=== PATIENT | female | born 1955 | race Caucasian/White ===

== ENCOUNTER 2017-03-28 10:29 | Outpatient (CLI) | payer OTHER, BC ==
[2017-03-28 18:19] LABS: BASOPHILS # (AUTO) 0.1 10^3/uL (0.0-0.1); BASOPHILS % (AUTO) 1.2 %; EOSINOPHILS % (AUTO) 0.6 %; HCT - HEMATOCRIT 46.7 % (37.0-47.0); LYMPHOCYTES # (AUTO) 1.9 10^3/uL (1.5-3.5); LYMPHOCYTES % (AUTO) 28.9 %; MEAN CORPUSCULAR HEMOGLOBIN 29.1 pg (27.0-31.0); MEAN CORPUSCULAR HGB CONC 32.1 g/dL (32.0-36.0); MEAN CORPUSCULAR VOLUME 90.5 fL (81.0-99.0); MEAN PLATELET VOLUME 7.6 fL (7.9-10.8); MONOCYTES # (AUTO) 0.4 10^3/uL (0.0-1.0); MONOCYTES % (AUTO) 6.1 %; NEUTROPHILS # (AUTO) 4.2 10^3/uL (1.5-6.6); NEUTROPHILS % (AUTO) 63.2 %; NUCLEATED RED BLOOD CELLS AUTO 0.1 /100WBC; RED BLOOD COUNT 5.16 10^6/uL (4.20-5.40); RED CELL DISTRIBUTION WIDTH 13.6 % (12.0-15.0); UNCORRECTED WHITE BLOOD COUNT 6.6 x10^3/uL; WHITE BLOOD COUNT 6.6 x10^3/uL (4.8-10.8)
[2017-03-28 19:17] LABS: ALBUMIN/GLOBULIN RATIO 1.5 (1.0-2.2); BILIRUBIN,TOTAL 0.7 mg/dL (0.2-1.0); BUN - BLOOD UREA NITROGEN 11 mg/dL (6-20); CALCIUM 9.6 mg/dL (8.5-10.3); CARBON DIOXIDE - CO2 26 mmol/L (21-32); CHLORIDE 100 mmol/L (101-111); CHOLESTEROL 238 mg/dL; CREATININE 0.7 mg/dL (0.4-1.0); GFR - MDRD 86 (>89); GLUCOSE 91 mg/dL (70-100); HDL CHOLESTEROL 118 mg/dL; LDL/HDL RATIO 0.9 (<4.4); POTASSIUM 3.9 mmol/L (3.5-5.0); SODIUM 138 mmol/L (135-145); TOTAL PROTEIN 7.7 g/dL (6.7-8.2); TRIGLYCERIDES 47 mg/dL; VLDL CHOLESTEROL 9 mg/dL
== END 2017-03-28 10:30 | disposition home or self-care (01) ==
LOC: LAB.F 10:29
PROVIDERS: ATTEND Physician Assistant Medical
DX: Z00.00 Encounter for general adult medical examination without abnormal findings (principal); I10 Essential (primary) hypertension; E78.5 Hyperlipidemia, unspecified; E55.9 Vitamin D deficiency, unspecified; Z13.29 Encounter for screening for other suspected endocrine disorder; Z20.5 Contact with and (suspected) exposure to viral hepatitis
CPT/HCPCS: 36415; 80053; 80061; 82306; 84443; 85025; 86803

== ENCOUNTER 2017-04-10 15:12 | Outpatient (CLI) | payer OTHER, BC ==
--- NOTE | 2017-04-12 14:14 | Mammography Report ---
DIGITAL SCREENING MAMMOGRAM: 04/10/2017 CLINICAL INDICATION: A 61-year-old, for screening. COMPARISON: No previous examinations are available for comparison. If records in your office indicate where the patient has had previous mammograms, we would be happy to try to obtain them for direct co mparison. Otherwise, this will serve as a new baseline. TECHNIQUE: Routine CC and MLO projections were obtained of the breasts. FINDINGS: The breasts demonstrate heterogeneously dense fibroglandular parenchyma bilaterally. Coars e and punctate, typically benign calcifications are present. No suspicious masses, clustered microcal cifications, or regions of architectural distortion are identified. IMPRESSION: BENIGN FINDINGS. RECOMMENDATION: ROUTINE ANNUAL SCREENING UNLESS OTHERWISE CLINICALLY INDICATED. BIRADS CATEGORY 2-BENIGN FINDINGS. STANDARD QUALIFYING STATEMENTS 1. This examination was reviewed with the aid of Computer-Aided Detection (CAD). 2. A negative or benign imaging report should not delay biopsy if clinically suspicious findings are present. Consider surgical consultation if warranted. More than 5% of cancers are not identified by i maging. 3. Dense breasts may obscure an underlying neoplasm. JOB #: [id number] EXT JOB #:[id number]
== END 2017-04-10 15:13 | disposition home or self-care (01) ==
LOC: DI 15:12
PROVIDERS: ATTEND Physician Assistant Medical
DX: Z00.00 Encounter for general adult medical examination without abnormal findings (principal); Z12.31 Encounter for screening mammogram for malignant neoplasm of breast
CPT/HCPCS: 77067

== ENCOUNTER 2017-05-06 10:40 | Outpatient (CLI) | payer OTHER, BC ==
--- NOTE | 2017-05-08 15:12 | DEXA Report ---
DEXA SCAN: 05/06/2017 HISTORY: Steroid use. TECHNIQUE: Dual energy x-ray absorptiometry (DXA) was performed on a [employer] system. Regions measured are the AP spine, femoral neck, and, if needed, forearm. COMPARISON: None. In accordance with the International Society for Clinical Densitometry (ISCD) guidelines, data from previous exams may be reanalyzed using current recommendations and techniques. This is done to allow a more accurate basis for comparison with the current study. FINDINGS LUMBAR SPINE DATA: REGION BMD (g/cm/cm) T-SCORE Z-SCORE L1 0.811 -2.7 -1.7 L2 0.912 -2.4 -1.4 L3 1.053 -1.2 -0.2 L4 0.936 -2.2 -1.2 TOTAL L1-L4 0.931 -2.0 -1.1 TOTAL L2-L4 0.965 -2.0 -1.0 NOTE: All evaluable vertebrae are used for classification. HIP DATA: REGION BMD (g/cm/cm) T-SCORE Z-SCORE Neck 0.756 -2.0 -0.9 TOTAL 0.800 -1.7 -0.9 NOTE: The femoral neck or total proximal femur, whichever is lowest, is used for classification. IMPRESSION THE WHO CLASSIFICATION BASED ON THE INTERNATIONAL REFERENCE STANDARD: OSTEOPENIA. FRACTURE RISK: INCREASED. RECOMMENDATION: Patients with diagnosis of osteoporosis or osteopenia should have regular bone mineral density assessment. For those eligible for Medicare, routine testing is allowed once every 2 years. Testing frequency can be increased for patients who have rapidly progressing disease or for those who are receiving medical therapy to restore bone mass. COMMENT: World Health Organization (WHO) definitions for osteoporosis and osteopenia: NORMAL BMD: T-score at -1.0 or higher, fracture risk is low. OSTEOPENIA BMD: T-score between -1.0 and -2.5, fracture risk is increased. OSTEOPOROSIS BMD: T-score at -2.5 or lower, fracture risk high. National Osteoporosis Foundation recommends: 1. Obtain adequate dietary calcium (at least 1200 mg per day) and vitamin D (400 -800 international units per day). 2. Participate, as appropriate, in regular weightbearing and muscle- strengthening exercise. 3. Avoid tobacco use and reduce alcohol and caffeine intake. 4. For more detailed information see the website at www.NOF.org. MTDD
== END 2017-05-06 10:41 | disposition home or self-care (01) ==
LOC: DI 10:40
PROVIDERS: ATTEND Physician Assistant Medical
DX: Z00.00 Encounter for general adult medical examination without abnormal findings (principal); Z13.820 Encounter for screening for osteoporosis; M85.89 Other specified disorders of bone density and structure, multiple sites
CPT/HCPCS: 77080

== ENCOUNTER 2018-03-10 11:53 | Outpatient (CLI) | payer OTHER, BC ==
[2018-03-10 17:51] LABS: BASOPHILS # (AUTO) 0.1 10^3/uL (0.0-0.1); BASOPHILS % (AUTO) 1.1 %; EOSINOPHILS # (AUTO) 0.1 10^3/uL (0.0-0.7); EOSINOPHILS % (AUTO) 1.9 %; HGB - HEMOGLOBIN 15.1 g/dL (12.0-16.0); LYMPHOCYTES # (AUTO) 2.2 10^3/uL (1.5-3.5); LYMPHOCYTES % (AUTO) 35.7 %; MEAN CORPUSCULAR HEMOGLOBIN 29.2 pg (27.0-31.0); MEAN CORPUSCULAR VOLUME 88.5 fL (81.0-99.0); MEAN PLATELET VOLUME 7.8 fL (7.9-10.8); MONOCYTES # (AUTO) 0.4 10^3/uL (0.0-1.0); MONOCYTES % (AUTO) 7.3 %; NEUTROPHILS # (AUTO) 3.3 10^3/uL (1.5-6.6); PLT - PLATELET COUNT 306 10^3/uL (130-450); RED BLOOD COUNT 5.16 10^6/uL (4.20-5.40); RED CELL DISTRIBUTION WIDTH 13.6 % (12.0-15.0); WHITE BLOOD COUNT 6.1 x10^3/uL (4.8-10.8)
[2018-03-10 18:14] LABS: ALBUMIN 4.2 g/dL (3.2-5.5); ALBUMIN/GLOBULIN RATIO 1.4 (1.0-2.2); ALKALINE PHOSPHATASE 65 IU/L (42-121); ALT ALANINE AMINOTRANSFERASE 21 IU/L (10-60); AST ASPARTATE AMINOTRANSFERASE 20 IU/L (10-42); BUN - BLOOD UREA NITROGEN 13 mg/dL (6-20); CALCIUM 8.9 mg/dL (8.5-10.3); CARBON DIOXIDE - CO2 26 mmol/L (21-32); CHLORIDE 100 mmol/L (101-111); CHOL/HDL RATIO 2.3 (<4.4); CHOLESTEROL 200 mg/dL; CREATININE 0.7 mg/dL (0.4-1.0); GFR - MDRD 85 (>89); GLUCOSE 104 mg/dL (70-100); HDL CHOLESTEROL 87 mg/dL; LDL CHOLESTEROL,CALCULATED 98 mg/dL; LDL/HDL RATIO 1.1 (<4.4); SODIUM 136 mmol/L (135-145); TOTAL PROTEIN 7.3 g/dL (6.7-8.2); VLDL CHOLESTEROL 15 mg/dL
== END 2018-03-10 11:54 | disposition home or self-care (01) ==
LOC: LAB.F 11:53
PROVIDERS: ATTEND Physician Assistant Medical
DX: I10 Essential (primary) hypertension (principal); E78.5 Hyperlipidemia, unspecified
CPT/HCPCS: 36415; 80053; 80061; 83721; 85025

== ENCOUNTER 2019-05-07 10:47 | Outpatient (CLI) | payer OTHER, BC | END 2019-05-07 10:48 | disposition home or self-care (01) | LOC: LAB.S 10:47 | PROVIDERS: ATTEND Physician Assistant Medical | DX: Z13.29 Encounter for screening for other suspected endocrine disorder (principal); Z84.89 Family history of other specified conditions; R68.83 Chills (without fever) | CPT/HCPCS: 36415; 84443 ==

== ENCOUNTER 2020-04-07 15:40 | Outpatient (CLI) | payer BC ==
--- NOTE | 2020-04-07 16:24 | DEXA Report ---
PROCEDURE: Dexa Spine and/or Hip INDICATIONS: POST MENOPAUSAL TECHNIQUE: Dual energy x-ray absorptiometry (DXA) was performed on a [employer] System. Regions measur ed are the AP Spine, femoral neck, and if needed forearm. COMPARISON: 05/06/2017. FINDINGS: Lumbar Spine: Bone Mineral Density 1.010 g/cm/cm,T score -1.4, osteopenia Left Hip: Bone Mineral Density 0.750 g/cm/cm,T score -2.0, osteopenia Left Femoral Neck: Bone Mineral Density 0.70 g/cm/cm, T score -2.4, osteopenia (T score greater or equal to -1.0: NORMAL) (T score from -1.1 to -2.4: OSTEOPENIA) (T score less than or equal to -2.5 to: OSTEOPOROSIS) Impression: Osteopenia. Bone mineral density has decreased 6.3% interval since prior exam. Patients with diagnosis of osteoporosis or osteopenia should have regular bone mineral density assess ment. For those eligible for Medicare, routine testing is allowed once every 2 years. Testing frequ ency can be increased for patients who have rapidly progressing disease or for those who are receivin g medical therapy to restore bone mass. Reviewed by: Marissa Hurt MD, PhD on 04/07/2020 4:23 PM PST Approved by: Marissa Hurt MD, PhD on 04/07/2020 4:23 PM PST Station ID: [id number]
== END 2020-04-07 15:41 | disposition home or self-care (01) ==
LOC: DI 15:40
PROVIDERS: ATTEND Physician Assistant
DX: M85.89 Other specified disorders of bone density and structure, multiple sites (principal)
CPT/HCPCS: 77080

== ENCOUNTER 2020-06-22 09:29 | Outpatient (CLI) | payer BC ==
[2020-06-24] MEDS ORDERED: ALBUTEROL 1 PUFF INH STA (11:34)
== END 2020-06-22 09:30 | disposition home or self-care (01) ==
LOC: RT 09:29
PROVIDERS: ATTEND Internal Medicine
DX: J45.40 Moderate persistent asthma, uncomplicated (principal)
CPT/HCPCS: 94060; 94729

== ENCOUNTER 2020-08-31 11:54 | Outpatient (CLI) | payer BC ==
[2020-08-31 15:14] LABS: BASOPHILS # (AUTO) 0.1 10^3/uL (0.0-0.1); BASOPHILS % (AUTO) 1.2 %; EOSINOPHILS # (AUTO) 0.1 10^3/uL (0.0-0.7); HCT - HEMATOCRIT 43.6 % (37.0-47.0); HGB - HEMOGLOBIN 14.4 g/dL (12.0-16.0); LYMPHOCYTES # (AUTO) 1.8 10^3/uL (1.5-3.5); LYMPHOCYTES % (AUTO) 29.7 %; MEAN CORPUSCULAR HEMOGLOBIN 29.4 pg (27.0-31.0); MEAN PLATELET VOLUME 9.2 fL (7.9-10.8); MONOCYTES # (AUTO) 0.4 10^3/uL (0.0-1.0); MONOCYTES % (AUTO) 6.4 %; NEUTROPHILS # (AUTO) 3.6 10^3/uL (1.5-6.6); NEUTROPHILS % (AUTO) 61.4 %; PLT - PLATELET COUNT 351 10^3/uL (130-450); WHITE BLOOD COUNT 5.9 x10^3/uL (4.8-10.8)
[2020-08-31 15:30] LABS: ALBUMIN 4.4 g/dL (3.2-5.5); ALBUMIN/GLOBULIN RATIO 1.4 (1.0-2.2); ALKALINE PHOSPHATASE 66 IU/L (42-121); ALT ALANINE AMINOTRANSFERASE 18 IU/L (10-60); AST ASPARTATE AMINOTRANSFERASE 19 IU/L (10-42); BILIRUBIN,TOTAL 0.9 mg/dL (0.2-1.0); BUN - BLOOD UREA NITROGEN 8 mg/dL (6-20); CALCIUM 9.9 mg/dL (8.5-10.3); CARBON DIOXIDE - CO2 28 mmol/L (21-32); CHLORIDE 95 mmol/L (101-111); CHOL/HDL RATIO 2.7 (<4.4); CHOLESTEROL 289 mg/dL; CREATININE 0.6 mg/dL (0.4-1.0); GFR - MDRD 101 (>89); GLUCOSE 107 mg/dL (70-100); HDL CHOLESTEROL 107 mg/dL; LDL CHOLESTEROL,CALCULATED 170 mg/dL; LDL/HDL RATIO 1.6 (<4.4); POTASSIUM 3.6 mmol/L (3.5-5.0); SODIUM 134 mmol/L (135-145); TOTAL PROTEIN 7.5 g/dL (6.7-8.2); TRIGLYCERIDES 58 mg/dL; VLDL CHOLESTEROL 12 mg/dL
== END 2020-08-31 11:55 | disposition home or self-care (01) ==
LOC: LAB.S 11:54
PROVIDERS: ATTEND Internal Medicine
DX: I10 Essential (primary) hypertension (principal)
CPT/HCPCS: 36415; 80053; 80061; 83721; 85025

== ENCOUNTER 2020-11-21 12:30 | Outpatient (CLI) | payer BC ==
--- NOTE | 2020-11-22 14:24 | Mammography Report ---
BILATERAL DIGITAL SCREENING MAMMOGRAM 3D/2D: 11/21/2020 CLINICAL: Routine screening. Comparison is made to exam dated: 04/10/2017 mammogram - [facility]. The tissue of both breasts is heterogeneously dense. This may lower the sensitivity of mammography. There are benign calcifications in both breasts. No significant masses, calcifications, or other findings are seen in either breast. There has been no significant interval change. IMPRESSION: BENIGN There is no mammographic evidence of malignancy. A 1 year screening mammogram is recommended. This exam was interpreted at Station ID: [id number]. NOTE: For mammograms, a report in lay terms will be sent to the patient. Approximately 15% of breast malignancies will not be visualized mammographically. In the management of a palpable breast mass, a negative mammogram must not discourage biopsy of a clinically suspicious lesion. Electronically Signed By: Seymour Costello M.D. ddp/penrad:11/21/2020 14:49:24 ACR BI-RADS Category 2: Benign Finding(s) 3342F PARENCHYMAL PATTERN: (D) - The breast(s) demonstrate(s) heterogeneously dense fibroglandular agustin hu. BI-RADS CATEGORY: (2) - 2 RECOMMENDATION: (ANNUAL) - Recommend routine annual screening mammography. [id number] 1 year screening LATERALITY: (B)
== END 2020-11-21 12:31 | disposition home or self-care (01) ==
LOC: DI 12:30
PROVIDERS: ATTEND Internal Medicine
DX: Z12.31 Encounter for screening mammogram for malignant neoplasm of breast (principal)

== ENCOUNTER 2021-04-26 13:40 | Outpatient (CLI) | payer BC | END 2021-04-26 23:59 | disposition home or self-care (01) | LOC: LAB 13:40 | PROVIDERS: ATTEND Emergency Medicine | DX: R05.9 Cough, unspecified (principal); Z20.822 Contact with and (suspected) exposure to COVID-19 ==

== ENCOUNTER 2021-05-08 11:19 | Outpatient (CLI) | payer BC ==
[2021-05-08 15:03] LABS: BASOPHILS % (AUTO) 0.7 %; EOSINOPHILS # (AUTO) 0.1 10^3/uL (0.0-0.7); HCT - HEMATOCRIT 40.3 % (37.0-47.0); HGB - HEMOGLOBIN 12.9 g/dL (12.0-16.0); LYMPHOCYTES # (AUTO) 1.8 10^3/uL (1.5-3.5); LYMPHOCYTES % (AUTO) 30.4 %; MEAN CORPUSCULAR HEMOGLOBIN 28.2 pg (27.0-31.0); MEAN PLATELET VOLUME 8.7 fL (7.9-10.8); MONOCYTES # (AUTO) 0.4 10^3/uL (0.0-1.0); MONOCYTES % (AUTO) 6.5 %; NEUTROPHILS # (AUTO) 3.6 10^3/uL (1.5-6.6); NEUTROPHILS % (AUTO) 59.9 %; PLT - PLATELET COUNT 335 10^3/uL (130-450); RED BLOOD COUNT 4.58 10^6/uL (4.20-5.40)
[2021-05-08 15:30] LABS: ALBUMIN 4.3 g/dL (3.2-5.5); ALBUMIN/GLOBULIN RATIO 1.6 (1.0-2.2); ALKALINE PHOSPHATASE 77 IU/L (42-121); ALT ALANINE AMINOTRANSFERASE 60 IU/L (10-60); AST ASPARTATE AMINOTRANSFERASE 27 IU/L (10-42); BILIRUBIN,TOTAL 0.7 mg/dL (0.2-1.0); BUN - BLOOD UREA NITROGEN 17 mg/dL (6-20); CALCIUM 9.4 mg/dL (8.5-10.3); CARBON DIOXIDE - CO2 30 mmol/L (21-32); CHLORIDE 96 mmol/L (101-111); CHOL/HDL RATIO 2.3 (<4.4); CHOLESTEROL 190 mg/dL; CREATININE 0.6 mg/dL (0.4-1.0); GFR - MDRD 101 (>89); GLUCOSE 91 mg/dL (70-100); HDL CHOLESTEROL 82 mg/dL; LDL CHOLESTEROL,CALCULATED 95 mg/dL; LDL/HDL RATIO 1.2 (<4.4); POTASSIUM 4.1 mmol/L (3.5-5.0); SODIUM 133 mmol/L (135-145); TRIGLYCERIDES 64 mg/dL; VLDL CHOLESTEROL 13 mg/dL
== END 2021-05-08 11:20 | disposition home or self-care (01) ==
LOC: LAB.S 11:19
PROVIDERS: ATTEND Internal Medicine
DX: Z01.84 Encounter for antibody response examination (principal); I10 Essential (primary) hypertension; E78.5 Hyperlipidemia, unspecified
CPT/HCPCS: 36415; 80053; 80061; 83721; 85025; 86769

== ENCOUNTER 2021-09-13 10:50 | Outpatient (CLI) | payer BC ==
[2021-09-13 12:16] VITALS: BP 105/77
--- NOTE | 2021-09-13 12:16 | SLEEP CARE CONSULTATION ---
Information from patient questionnaire entered by Sd Christy MA. I have reviewed and concur with the information entered by Sd Christy MA. This document represents the service I personally performed and the decisions made by , Kathleen oFntana ARNP. History of Present Illness Service Date and Time: 09/13/2021 1050 Reason for Visit: New patient (ONSET 06/2011, NO PRIORS, ) Chief Complaint: reports: Insomnia, Unrefreshed sleep, Snoring, Excessive dayti me sleepiness, Fatigue, Frequent awakenings at night, Other Date of Onset: 10 years Usual bedtime: 10 pm Time it takes to fall asleep: up to 2 hours Snores at night: Yes Observed to quit breathing while asleep: No Sleeps alone due to snoring: Yes Number of times waking at night: at least 3 Reasons for waking at night: reports: Snoring (usually if laying on her back), Bathroom, Other (toss and turn). denies: Choking, Gasping for air Toss, Turn, or Twitch while sleeping: Yes Recalls having dreams: Yes (at times) Usually gets out of bed at: 0730 Feels refreshed in the morning: Yes (but gets tired quickly) Morning headache: Yes (daily; sometimes last whole day and other after coffee) Sleepy or fatigued during the day: Yes Ever fallen asleep while driving: No Takes day naps: No Prior sleep studies: No Additional HPI information: I had the pleasure of seeing SHAKA AYALA today regarding the possibility of her having a sleep disorder. Her current complaints are excessive daytime sleepiness, fatigue, frequent night awakenings, insomnia, snoring and unrefreshed sleep. Her complains of her snoring. She now sleeps in a separate room. She can take up to 2 hours to fall asleep 50-75% of the time. She has tried melatonin and has a sleep aide that she only uses as needed. She is "exhausted" during the day normally. She states she does wake up feeling rested but will quickly feel exhausted. She does wake up with a headache in the morning every day. She states they can go away after her morning coffee or last all day. She tells me that she has back and neck issues which may be the cause of her headaches in the morning. She will wake up a few times during the night and mostly will be able to go right back to sleep. She has to get up mainly to use the bathroom. - Parasomnia Symptoms Ever been unable to move upon waking from sleep: No Walks in sleep: No Talks in sleep: Yes Ever acted out dreams in sleep: No Ever felt weak in the knees when startled or emotional: No Bothered by creepy, crawly, restless sensations in legs: Yes (4-5 days a week; can start betw 6-7 pm; stretching legs can help sometimes) Problems with memory or concentration: Yes (both) Subjective Initial [place] Sleepiness Scale score: 3 (09/22) Past Medical History Past Medical History: reports: Hypertension, Arthritis, Anxiety, Emphysema (COPD), Other (seeing chiropractor for right side and low back pain; neck pain) Social History The patient's occupation is a RETIRED. Patient is and lives in [place]. Have you smoked in the past 12 months: No Cigarettes per day (20/pack): 20 Years of smokin Quit date: 2020 Smoking Pack Years: 20.0 Alcohol use: Yes Alcohol amount and frequency: 1-2 every couple months, very rare Caffeine use: Yes Caffeine amount and frequency: 3 x daily Family History Family history of sleep disordered breathing: No (spouse and son) Allergies and Home Medications Drug allergies reviewed: Yes (NKDA) Home medication list reviewed: Yes Allergy and home medication list: Medications: Carvedilol 40 mg Fluoxetine 20 mg Atorvastatin 20 mg HCTZ 25 mg Fluticasone propionate Spiriva 18 mcg Trazodone 50 mg, prn sleep Ventolin HFA Glucosamine HCI w/ MSM Multivitamins B complex Vit D COQ10 Turmeric Cinnamon Fish oil Melatonin, prn Review of Systems Weight gain over past 5 years: 80 Cardiovascular: reports: high blood pressure Respiratory: reports: shortness of breath, wheeze Urinary: reports: frequency Psychiatric: reports: anxiety Ear/Nose/Throat: reports: nasal congestion, sinus problems, hoarseness Endocrine: reports: sluggishness, too hot or cold, unexplained weakness Musculoskeletal: reports: joint pain, neck pain, back pain, muscle pain or cramping Immunologic: reports: sneezing Physical Exam Vital signs obtained and entered by: Hortencia CHRISTY CMA AAMA Blood Pressure: 105/77 (pulse 62, resp 16, right) Heart Rate: 63 O2 Saturation: 93 (paper mask) Height: 5 ft 6 in Weight: 237 lb Body Mass Index: 38.2 BMI Classification: Obese Neck circumference: 16 (inches) Mouth and throat: normal Soft palate: long Hard palate: normal Uvula: normal Uvula visualization: 100% Mallampati Class I Tongue: enlarged in size with teeth nicolas on lateral edges Tonsils: small Neck: normal w/o lymphadenopathy or thyromegaly Heart: regular rate and rhythm Lungs: clear bilaterally Impression and Plan 1. Suspected Obstructive Sleep Apnea-Hypopnea Syndrome, as suggested by a history of loud and irregular snoring, morning headache, frequent awakening during the night, cognitive impairment, and excessive daytime sleepiness. Narrow oropharynx and obesity are common predisposing factors for obstructive sleep apnea-hypopnea syndrome. I recommend proceeding to polysomnography to confirm the diagnosis and to assess severity. If the patient has significant sleep disordered breathing, a manual CPAP titration study will also be performed to find the optimal treatment pressure. I informed the patient of what the sleep studies involve and after some discussion, obtained agreement to proceed. The pathophysiology of obstructive sleep apnea-hypopnea syndrome was discussed with the patient and health risks of cardiovascular and cerebrovascular disease if not treated. Risks of drowsy driving discussed in detail and patient advised to avoid long distance driving and to pulley worker at the first sign of drowsiness. Patient agreed to plan. * Schedule polysomnography +- manual CPAP titration study and return in 1-2 weeks after the study to discuss results. * Avoid long distance driving or driving when feeling sleepy. * Avoid alcohol, sedative and muscle relaxant around bedtime. * Attempt to lose weight. * Review instructions provided by trained office staff on how to prepare for the sleep study. * Return for follow-up after sleep study completed. Counseling Topics: Weight loss health impact Visit Type: In Office Time Spent with Patient (minutes): 31 Provider Statement: I spent 100% of the Face to Face Visit with the patient with greater than 50% spent counseling the patient and coordination of care.
== END 2021-09-13 10:51 | disposition home or self-care (01) ==
LOC: SC 10:50
PROVIDERS: ATTEND Nurse Practitioner Family
DX: G47.8 Other sleep disorders (principal); Z87.891 Personal history of nicotine dependence; E66.9 Obesity, unspecified; Z68.38 Body mass index [BMI] 38.0-38.9, adult; G47.10 Hypersomnia, unspecified; R41.9 Unspecified symptoms and signs involving cognitive functions and awareness
CPT/HCPCS: 99203; 99212

== ENCOUNTER 2021-09-22 12:35 | Outpatient (CLI) | payer BC | END 2021-09-22 12:36 | disposition home or self-care (01) | LOC: SC 12:35 | PROVIDERS: ATTEND Nurse Practitioner Family | DX: G47.33 Obstructive sleep apnea (adult) (pediatric) (principal); R09.02 Hypoxemia | CPT/HCPCS: 95806 ==

== ENCOUNTER 2021-10-05 08:59 | Outpatient (CLI) | payer BC ==
[2021-10-05 10:00] VITALS: BP 129/71
--- NOTE | 2021-10-05 10:00 | SLEEP CARE CONSULTATION ---
Information from patient questionnaire entered by Sd Osorio MA. I have reviewed and concur with the information entered by Sd Osorio MA. This document represents the service I personally performed and the decisions made by , Kathleen Fontana ARNP. History of Present Illness Service Date and Time: 10/05/2021 0859 Accompanied by: Spouse Initial [place] Sleepiness Scale score: 3 (09/22) Current [place] Sleepiness Scale score: 2 (10/2021) Additional HPI information: SHAKA AYALA returns for follow up with spouse in attendance and results of the recently performed home sleep study. I explained the pathophysiology behind obstructive sleep apnea. We then spent quite a bit of time discussing different treatment options. For mild obstructive sleep apnea, surgery and oral appliance are alternatives to nasal CPAP therapy but in moderate or severe cases, nasal CPAP is the most effective and reliable treatment. I reviewed the impact of weight changes on sleep apnea and strongly recommended losing weight. After some discussion, the patient opted to go with the nasal CPAP therapy. Nasal autoCPAP set at 4-15 cmH20 will be ordered with rationale explained. A manual titration study will be ordered if unable to find optimal pressure with office adjustments. I explained how CPAP machine works and what to expect when using the machine. Using CPAP every night in order to get used to it was em phasized. Patient advised to put CPAP mask on before getting into bed so as not to fall asleep without CPAP. To assist acclimation to CPAP use, it could also be used for a short time during day while reading or watching TV. The patient was instructed to call the CPAP supplier to discuss any mechanical problem that may occur. If the mask given is uncomfortable or is difficult to keep on through the night even with adjustment, contact the CPAP supplier as many will replace with another mask style if notified before 30 days. If snoring or perceives is not getting enough air or too much air from the machine, notify this office. AASM patient education PAP tips reviewed and given to patient. Patient counseled not drink alcohol less than 4 hours before bedtime as it can increase snoring and apnea. Patient was cautioned about risks of drowsy driving until sleepiness symptoms resolve. Sleep Study - Results Type of Sleep Study: Home sleep study (F/U HOME STUDY, 09/22/21 [facility] Prior sleep studies: No Polysomnography/Home Sleep Study results: Physician Impression: The quality of the study is good. The length of the study is adequate (> 240 minutes). Please also see the tabulated and graphic data. 1. Obstructive Sleep Apnea-Hypopnea (ICD-10 G47.33), severe, with an AHI of 32.6/hr and carey SaO2 of 63%. During the study, the patient had 106 apneas (106 obstructive, 0 central, 0 mixed) and 40 hypopneas. The longest episode lasted 85.5 seconds. The respiratory events occurred more frequently during supine sleep (supine AHI was 43.8 and non-supine, 6.85). 2. Hypoxemia (ICD-10 R09.02), moderate, with the lowest oxygen saturation of 63 % and 65.0 minutes with SaO2 under 90%. Baseline oxygen saturation was normal (Average oxygen saturation was 91%). Allergies and Home Medications Known drug allergies: Yes Drug allergies reviewed: Yes Home medication list reviewed: Yes (no changes) Review of Systems Review of systems same as previous: Yes (no changes) Physical Exam Vital signs obtained and entered by: Hortencia OSORIO CMA AAHI, Blood Pressure: 129/71 (right, pulse 72, resp 16, ) Cuff size: wrist Heart Rate: 70 O2 Saturation: 96 (paper mask) Height: 5 ft 6 in Weight: 230 lb (clothes) Body Mass Index: 37.1 BMI Classification: Obese Impression and Plan 1. Obstructive Sleep Apnea-Hypopnea Syndrome, severe, with lowest oxygen saturation of 63%. Obviously this is the cause of the patients symptoms of unrefreshed sleep, and excessive daytime sleepiness. Positive pressure therapy could benefit hypertension, anxiety and COPD. As mentioned above, the patient will be started on nasal autoCPAP therapy with pressure set at 4-15 cmH2O. A manual titration study will be completed if unable to find optimal treatment pressure with office adjustments. Compliance guidelines also reviewed. A copy of compliance guidelines will be given for reference at check out. Because the apnea is more severe supine, I instructed to avoid sleeping supine using pillow positioning until able to start CPAP use. 2. Hypoxemia, moderate, with the lowest oxygen saturation of 63 % and 65.0 minutes with SaO2 under 90%. Her baseline oxygen saturation was normal with an average oxygen saturation of 91%. * Nasal auto CPAP therapy, pressure at 4-15 cm H2O. * Attempt to lose weight. * Avoid alcohol consumption near bedtime. * Avoid supine sleep until using CPAP. * The patient is again cautioned about driving until sleepiness completely resolves. * Return one month after CPAP obtained. I will assess response to therapy and compliance at that time. Counseling Topics: Spare mask, Weight loss health impact Visit Type: In Office Time Spent with Patient (minutes): 22 Provider Statement: I spent 100% of the Face to Face Visit with the patient with greater than 50% spent counseling the patient and coordination of care.
== END 2021-10-05 09:00 | disposition home or self-care (01) ==
LOC: SC 08:59
PROVIDERS: ATTEND Nurse Practitioner Family
DX: G47.33 Obstructive sleep apnea (adult) (pediatric) (principal); R09.02 Hypoxemia; E66.9 Obesity, unspecified; Z68.37 Body mass index [BMI] 37.0-37.9, adult
CPT/HCPCS: 99212; 99213

== ENCOUNTER 2021-12-01 12:52 | Outpatient (CLI) | payer BC ==
[2021-12-01 13:44] VITALS: BP 126/78
--- NOTE | 2021-12-01 13:44 | SLEEP CARE CONSULTATION ---
Information from patient questionnaire entered by Sd Osorio MA. I have reviewed and concur with the information entered by Sd Osorio MA. This document represents the service I personally performed and the decisions made by , Kathleen Fontana ARNP. History of Present Illness Service Date and Time: 12/01/2021 1252 Previous diagnosis: Severe, Obstructive Sleep Apnea-Hypopnea Syndrome AHI: 32.6 Reason for follow up: first compliance (resmed, 10/11/2021 , ) Equipment type: CPAP Equipment obtained from: Other ([facility] ([place], [place]) [facility]; got initial supplies) Mask style: Nasal Mask brand: Resmed (Airfit [id number]) Backup mask available: No (will keep old mask when replaced) Last cushion change: 2-3 weeks Prior sleep studies: No Type of Sleep Study: Home sleep study (F/U HOME STUDY, 09/22/21 [facility],) HPI additional information: SHAKA AYALA was diagnosed to have severe, AHI 32.6, obstructive sleep apnea- hypopnea syndrome and returned today for CPAP therapy first compliance ([employer]) follow-up. Sleep Study - Results Type of Sleep Study: Home sleep study (F/U HOME STUDY, 09/22/21 [facility],) Prior sleep studies: No CPAP Compliance Data - Data Reviewed with Patient Average duration of nightly device use: 8 HOURS 17 MINUTES Compliance rate %: 100 (10/31/21-11/29/21; 30 days; 30/ days used) Current pressure setting (cmH2O): 4-15 (median 8.8, avg 11.0, max 12.0) Average residual AHI: 1.0 Central apnea: .2 Obstructive apnea: .1 Hypopnea: .6 Average large leak: 45.2 Subjective Patient concerns: reports: mask leak noise, dry mouth, nose, throat (occasional). denies: aerophagia, mask discomfort, air blowing in eyes, condensation in mask/hose, nasal congestion, epistaxis, other Observed to snore while using device: No Current pressure setting perceived as: comfortable On therapy, patient: reports: sleeping better, awakening more refreshed, being more awake and alert during the day, more rested overall. denies: drowsiness while driving Initial [place] Sleepiness Scale score: 3 (09/22) Current [place] Sleepiness Scale score: 3 (12/01/2021) Allergies and Home Medications Home medication list reviewed: Yes (no changes) Review of Systems Review of systems same as previous: Yes (COVID APR 2021) Physical Exam Vital signs obtained and entered by: RENATO Pinedo Blood Pressure: 126/78 (RESP 18, PULSE 70, RIGHT) Heart Rate: 72 O2 Saturation: 98 (MASK PAPER) Height: 5 ft 6 in Weight: 243 lb 8 oz (CLOTHES) Body Mass Index: 39.2 BMI Classification: Obese Impression and Plan 1. Obstructive Sleep Apnea-Hypopnea Syndrome, severe, with excellent treatment compliance and excellent apnea control. On CPAP therapy, the patient has better sleep quality and is more rested overall. Patient is doing well with CPAP pressure and has significant improvement of her sleep apnea. The patients pressure will be changed to autoCPAP 9-12 cmH20 to reflect pressures being used. Patient advised to contact me if pressure change is uncomfortable so that it can be adjusted. Goals for apnea control discussed. Patient has had some occasional oral dryness and may just be running out of water in her chamber. I adjusted her humidity level down 1 to see if this will help reduce oral dryness. She was shown how to adjust this on her machine on her own at home and voiced understanding. Patient's apnea severity and rationale for treatment to reduce apnea, improve sleep quality and reduce cardiovascular and cerebrovascular events was reviewed. I also reviewed the benefit of consistent device use of CPAP for hypertension, anxiety and COPD. * Change auto CPAP pressure to 9-12 cmH2O * Notify me if snoring with mask or feeling that the pressure is too much or too little * Attempt to lose weight * Call this office if any problems using CPAP * Return for follow up in 1-2 months, or sooner if concerns arise Counseling Topics: Spare mask, Weight loss health impact Visit Type: In Office Time Spent with Patient (minutes): 25 Provider Statement: I spent 100% of the Face to Face Visit with the patient with greater than 50% spent counseling the patient and coordination of care.
== END 2021-12-01 12:53 | disposition home or self-care (01) ==
LOC: SC 12:52
PROVIDERS: ATTEND Nurse Practitioner Family
DX: G47.33 Obstructive sleep apnea (adult) (pediatric) (principal); E66.9 Obesity, unspecified; Z68.39 Body mass index [BMI] 39.0-39.9, adult
CPT/HCPCS: 99212; 99213

== ENCOUNTER 2022-04-12 10:59 | Outpatient (CLI) | payer BC ==
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
[2022-04-12 11:27] VITALS: BP 134/82
== END 2022-04-12 11:00 | disposition home or self-care (01) ==
LOC: SC 10:59
PROVIDERS: ATTEND Nurse Practitioner Family
DX: G47.33 Obstructive sleep apnea (adult) (pediatric) (principal); E66.9 Obesity, unspecified; Z68.37 Body mass index [BMI] 37.0-37.9, adult
CPT/HCPCS: 99212; 99213

== ENCOUNTER 2022-06-18 10:49 | Outpatient (CLI) | payer BC ==
--- NOTE | 2022-06-19 11:52 | Mammography Report ---
BILATERAL DIGITAL SCREENING MAMMOGRAM 3D/2D: 06/18/2022 CLINICAL: Routine screening. Comparison is made to exams dated: 04/10/2017 mammogram and 11/21/2020 mammogram - [facility]. Both breasts are heterogeneously dense, which may obscure small masses (category c / 51-75% glandular tissue). There are benign calcifications in both breasts. No significant masses, calcifications, or other findings are seen in either breast. There has been no significant interval change. IMPRESSION: BENIGN There is no mammographic evidence of malignancy. A 1 year screening mammogram is recommended. Based on the Tyrer Cuzick model (a risk assessment model) the patients lifetime risk is 8.9% and her 10 year risk is 4.2%. According to the ACR, ACS, and NCCN guidelines, an annual breast MRI exam hussein g with mammogram is recommended if the patients lifetime risk is 20% or greater. This exam was interpreted at Station ID: [id number]. NOTE: For mammograms, a report in lay terms will be sent to the patient. Approximately 15% of breast malignancies will not be visualized mammographically. In the management of a palpable breast mass, a negative mammogram must not discourage biopsy of a clinically suspicious lesion. Electronically Signed By: Sylvester palacio/enmanuel:06/18/2022 16:29:15 ACR BI-RADS Category 2: Benign Finding(s) 3342F PARENCHYMAL PATTERN: (D) - The breast(s) demonstrate(s) heterogeneously dense fibroglandular agustin hu. BI-RADS CATEGORY: (2) - 2 RECOMMENDATION: (ANNUAL) - Recommend routine annual screening mammography. [id number] 1 year screening LATERALITY: (B)
== END 2022-06-18 10:50 | disposition home or self-care (01) ==
LOC: DI.S 10:49
DX: Z12.31 Encounter for screening mammogram for malignant neoplasm of breast (principal)

== ENCOUNTER 2022-06-18 10:54 | Outpatient (CLI) | payer BC ==
[2022-06-18 14:35] LABS: BASOPHILS # (AUTO) 0.1 10^3/uL (0.0-0.1); BASOPHILS % (AUTO) 1.3 %; EOSINOPHILS # (AUTO) 0.1 10^3/uL (0.0-0.7); HCT - HEMATOCRIT 45.1 % (37.0-47.0); LYMPHOCYTES # (AUTO) 1.9 10^3/uL (1.5-3.5); LYMPHOCYTES % (AUTO) 31.4 %; MEAN CORPUSCULAR HEMOGLOBIN 26.6 pg (27.0-31.0); MEAN CORPUSCULAR VOLUME 85.7 fL (81.0-99.0); MEAN PLATELET VOLUME 9.5 fL (7.9-10.8); MONOCYTES # (AUTO) 0.4 10^3/uL (0.0-1.0); MONOCYTES % (AUTO) 5.9 %; NEUTROPHILS # (AUTO) 3.5 10^3/uL (1.5-6.6); NEUTROPHILS % (AUTO) 59.1 %; PLT - PLATELET COUNT 355 10^3/uL (130-450); RED BLOOD COUNT 5.26 10^6/uL (4.20-5.40); RED CELL DISTRIBUTION WIDTH 15.4 % (12.0-15.0)
[2022-06-18 14:43] LABS: CALCIUM 9.5 mg/dL (8.5-10.3); CARBON DIOXIDE - CO2 30 mmol/L (21-32); CHLORIDE 97 mmol/L (101-111); GLUCOSE 91 mg/dL (70-100); POTASSIUM 3.9 mmol/L (3.5-5.0); SODIUM 136 mmol/L (135-145)
[2022-06-18 14:57] LABS: THYROID STIMULATING HORMONE 1.41 uIU/mL (0.34-5.60)
[2022-06-18 15:06] LABS: ALBUMIN 4.1 g/dL (3.2-5.5); ALBUMIN/GLOBULIN RATIO 1.1 (1.0-2.2); ALKALINE PHOSPHATASE 81 IU/L (42-121); ALT ALANINE AMINOTRANSFERASE 19 IU/L (10-60); AST ASPARTATE AMINOTRANSFERASE 21 IU/L (10-42); BILIRUBIN,TOTAL 0.7 mg/dL (0.2-1.0); BUN - BLOOD UREA NITROGEN 11 mg/dL (6-20); CHOLESTEROL 166 mg/dL; CREATININE 0.7 mg/dL (0.4-1.0); GFR - MDRD 84 (>89); HDL CHOLESTEROL 56 mg/dL; LDL CHOLESTEROL,CALCULATED 94 mg/dL; LDL/HDL RATIO 1.7 (<4.4); TOTAL PROTEIN 7.7 g/dL (6.7-8.2); TRIGLYCERIDES 79 mg/dL; VLDL CHOLESTEROL 16 mg/dL
== END 2022-06-18 10:55 | disposition home or self-care (01) ==
LOC: LAB.S 10:54
PROVIDERS: ATTEND Registered Nurse
DX: I10 Essential (primary) hypertension (principal); E78.5 Hyperlipidemia, unspecified; Z13.29 Encounter for screening for other suspected endocrine disorder; Z83.49 Family history of other endocrine, nutritional and metabolic diseases
CPT/HCPCS: 36415; 80053; 80061; 83721; 84443; 85025

== ENCOUNTER 2022-11-06 10:48 | Outpatient (CLI) | payer MEDICARE, OTHER ==
--- NOTE | 2022-11-06 11:36 | Sleep Patient Instructions ---
Sleep Center Visit Summary - Patient Visit Information Reason for Visit: Three month follow up for CPAP therapy - Patient Instructions Additional Instructions: You were here for follow up of CPAP therapy. You will be continued on CPAP therapy with pressure at 9-12 cmH2O. You should follow up with sleep care in 12 months. You may contact us sooner for any questions or concerns. - Clinic Information Contact: [facility] [address] [place] [address] [email or web address] T: [phone]
--- NOTE | 2022-11-06 11:39 | SLEEP CARE CONSULTATION ---
Information from patient questionnaire entered by Deepa Ryan. I have reviewed and concur with the information entered by Deepa Ryan. This document represents the service I personally performed and the decisions made by me, Kathleen Fontana ARNP. History of Present Illness Service Date and Time: 11/06/2022 1048 Previous diagnosis: Severe, Obstructive Sleep Apnea-Hypopnea Syndrome AHI: 32.6 Reason for follow up: other (6 MONTH F/U) Equipment type: CPAP (RESMED Airsense 11, 10/2021) Equipment obtained from: Other ([facility]; getting supplies) Mask style: Nasal (N30) Mask brand: Resmed Backup mask available: Yes (old mask) Last cushion change: 2 weeks Prior sleep studies: No Type of Sleep Study: Home sleep study (F/U HOME STUDY, 09/22/21 [facility],) HPI additional information: SHAKA AYALA was diagnosed to have severe, AHI 32.6, obstructive sleep apnea- hypopnea syndrome and returned today for CPAP therapy six month follow-up. Sleep Study - Results Type of Sleep Study: Home sleep study (F/U HOME STUDY, 09/22/21 [facility],) Prior sleep studies: No CPAP Compliance Data - Data Reviewed with Patient Average duration of nightly device use: 8 HRS 36 MIN Compliance rate %: 93 (05/06/22-11/01/22; 168/180 days used) Current pressure setting (cmH2O): 9-12 Average residual AHI: 0.6 Central apnea: 0 Obstructive apnea: 0.1 Hypopnea: 0.4 Subjective Missed days of use due to: reports: travel (visited family in [place]) Patient concerns: reports: mask leak noise (just needs adjustment), other (headaches- not just in morning, has had respiratory illness). denies: aerophagia, mask discomfort, air blowing in eyes, condensation in mask/hose, nasal congestion, dry mouth, nose, throat, epistaxis Observed to snore while using device: No Current pressure setting perceived as: comfortable On therapy, patient: reports: sleeping better, awakening more refreshed, being more awake and alert during the day, more rested overall. denies: drowsiness while driving Initial [place] Sleepiness Scale score: 3 (09/22) Current [place] Sleepiness Scale score: 2 (06/06/23) Allergies and Home Medications Known drug allergies: No Drug allergies reviewed: Yes Home medication list reviewed: Yes (no changes) Review of Systems Review of systems same as previous: Yes (no changes) Physical Exam Vital signs obtained and entered by: DEEPA Lee MA Blood Pressure: 126/76 (LEFT ARM) Cuff size: long Heart Rate: 78 O2 Saturation: 96 Height: 5 ft 6 in Weight: 228 lb 9.6 oz Body Mass Index: 36.8 BMI Classification: Obese Impression and Plan 1. Obstructive Sleep Apnea-Hypopnea Syndrome, severe, with good treatment compliance and good apnea control. On CPAP therapy, the patient has better sleep quality and is more rested overall. Patient has significant improvement of their sleep apnea and is satisfied with current CPAP therapy. Patient denies problems with oral dryness, nasal congestion, epistaxis, skin irritation or aerophagia. Patient's apnea severity and rationale for treatment to reduce apnea, improve sleep quality and reduce cardiovascular and cerebrovascular events was reviewed. I also reviewed the benefit of consistent device use of CPAP for hypertension, anxiety and COPD. 2. Obesity, unspecified. Currently patients BMI is 36.8. Obesity increases the risk of apnea, CPAP pressure requirements and overall health risks especially cardiovascular and diabetes. Thus patient is advised to lose weight. * Continue auto CPAP pressure at 9-12 cmH2O * Notify me if snoring with mask or feeling that the pressure is too much or too little * Attempt to lose weight * Call this office if any problems using CPAP * Return for follow up in 1 year, or sooner if concerns arise Counseling Topics: Spare mask, Weight loss health impact Visit Type: In Office Time Spent with Patient (minutes): 14 Provider Statement: I spent 100% of the Face to Face Visit with the patient with greater than 50% spent counseling the patient and coordination of care.
[2022-11-06 11:43] VITALS: BP 126/76
== END 2022-11-06 10:49 | disposition home or self-care (01) ==
LOC: SC 10:48
PROVIDERS: ATTEND Nurse Practitioner Family
DX: G47.33 Obstructive sleep apnea (adult) (pediatric) (principal); E66.9 Obesity, unspecified; Z68.36 Body mass index [BMI] 36.0-36.9, adult
CPT/HCPCS: 99213; G0463; 99212

== ENCOUNTER 2023-12-11 08:26 | Outpatient (CLI) | payer MEDICARE ==
--- NOTE | 2023-12-11 08:58 | Sleep Patient Instructions ---
Sleep Center Visit Summary - Patient Visit Information Reason for Visit: Annual follow-up - Patient Instructions Additional Instructions: You will continue with CPAP therapy with pressure set at 9-12 cmH2O. A supply prescription will be updated with your DME. I have added an order for a mask refitting to try the full face mask. We encourage you to continue to try to lose weight. Please follow up with the sleep care office in 1 year. - Clinic Information Contact: [facility] [address] [place] [address] [email or web address] T: [phone]
--- NOTE | 2023-12-11 09:02 | SLEEP CARE CONSULTATION ---
Information from patient questionnaire entered by Deepa Ryan. I have reviewed and concur with the information entered by Deepa Ryan. This document represents the service I personally performed and the decisions made by , Kathleen Fontana ARNP. History of Present Illness Service Date and Time: 12/11/2023825 Previous diagnosis: Severe, Obstructive Sleep Apnea-Hypopnea Syndrome AHI: 32.6 Reason for follow up: annual (LAST SEEN 11/2022) Equipment type: CPAP (RESMED Airsense 11, 10/2021) Equipment obtained from: Other ([facility]; getting supplies) Mask style: Nasal (N30) Mask brand: Resmed Backup mask available: Yes Last cushion change: 1 month Prior sleep studies: No Type of Sleep Study: Home sleep study (F/U HOME STUDY, 09/22/21 [facility],) HPI additional information: SHAKA AYALA was diagnosed to have severe, AHI 32.6, obstructive sleep apnea- hypopnea syndrome and returned today for CPAP therapy annual follow-up. Sleep Study - Results Type of Sleep Study: Home sleep study (F/U HOME STUDY, 09/22/21 [facility],) Prior sleep studies: No CPAP Compliance Data - Data Reviewed with Patient Average duration of nightly device use: 8 HRS 56 MINS Compliance rate %: 95 (12/08/22-12/07/23; 345/365 days used) Current pressure setting (cmH2O): 9-12 Average residual AHI: 0.6 Central apnea: 0 Obstructive apnea: 0.1 Hypopnea: 0.4 Average large leak: 3.1 L/min Subjective Missed days of use due to: reports: travel (no where to plug in machine) Patient concerns: reports: dry mouth, nose, throat (dry mouth, occasional). denies: aerophagia, mask discomfort, air blowing in eyes, mask leak noise, condensation in mask/hose, nasal congestion, epistaxis Observed to snore while using device: No Current pressure setting perceived as: comfortable On therapy, patient: reports: sleeping better, awakening more refreshed, being more awake and alert during the day, more rested overall. denies: drowsiness while driving Initial [place] Sleepiness Scale score: 3 (09/22) Current [place] Sleepiness Scale score: 0 (12/11/23) Allergies and Home Medications Known drug allergies: No Drug allergies reviewed: Yes Home medication list reviewed: Yes (no changes) Review of Systems Review of systems same as previous: Yes (NO CHANGE) Physical Exam Vital signs obtained and entered by: DEEPA Lee MA Blood Pressure: 132/74 (LEFT ARM) Cuff size: long Heart Rate: 75 O2 Saturation: 94 Height: 5 ft 6 in Weight: 234 lb 9.6 oz Weight change since last visit: 6 lb gain Body Mass Index: 37.8 BMI Classification: Obese Impression and Plan 1. Obstructive Sleep Apnea-Hypopnea Syndrome, severe, with good treatment compliance and good apnea control. On CPAP therapy, the patient has better sleep quality and is more rested overall. Patient has significant improvement of her sleep apnea and is satisfied with current CPAP therapy. Her tells her that her machine is noisy at night and she does have some mask leaks. She would like to try a fullface mask and like a style that was out in the waiting room. I will write for a mask refitting so that she can try to see if this would work for her. We will follow-up with her next year. Patient's apnea severity and rationale for treatment to reduce apnea, improve sleep quality and reduce cardiovascular and cerebrovascular events was reviewed. I also reviewed the benefit of consistent device use of CPAP for hypertension, anxiety. 2. Obesity, unspecified. Currently patients BMI is 37.8. Obesity increases the risk of apnea, CPAP pressure requirements and overall health risks especially cardiovascular and diabetes. Thus patient is advised to lose weight. * Continue auto CPAP pressure at 9-12 cmH2O * Mask refitting for full face mask, would like to try F&P Vitera full face mask * Update supply prescription * Notify me if snoring with mask or feeling that the pressure is too much or too little * Attempt to lose weight * Call this office if any problems using CPAP * Return for follow up in 12 months, or sooner if concerns arise Counseling Topics: Spare mask, Weight loss health impact Prescriptions: Device supplies Follow up with Sleep Care in: 1 year Visit Type: In Office Time Spent with Patient (minutes): 21 Provider Statement: I spent 100% of the Face to Face Visit with the patient with greater than 50% spent counseling the patient and coordination of care.
[2023-12-11 09:08] VITALS: BP 132/74; O2SAT 94
== END 2023-12-11 08:27 | disposition home or self-care (01) ==
LOC: SC 08:26
PROVIDERS: ATTEND Nurse Practitioner Family
DX: G47.33 Obstructive sleep apnea (adult) (pediatric) (principal); E66.9 Obesity, unspecified; Z68.37 Body mass index [BMI] 37.0-37.9, adult
CPT/HCPCS: 99213; G0463; 99212